=== PATIENT | female | born 1965 ===

== ENCOUNTER 2019-11-10 16:17 | Outpatient (REF) | payer BC, SELFPAY ==
[2019-11-14 16:03] LABS: SARS-CoV-2 RNA Undetected (Undetected); SARS-CoV-2 Specimen Source Nasopharynx
== END 2019-11-10 16:37 ==
LOC: NCHCN 16:17
PROVIDERS: Visit Provider Internal Medicine
DX: Z20.828 Contact with and (suspected) exposure to other viral communicable diseases (principal)
CPT/HCPCS: U0003

== ENCOUNTER 2021-05-28 16:17 | Outpatient (REF) | payer BC, SELFPAY ==
[2021-05-28 21:50] LABS: Hemoglobin A1C 5.5 % (<5.7)
[2021-05-28 22:06] LABS: ALT 41 U/L (14-59); AST 20 U/L (15-37); Alkaline Phosphatase 121 U/L (46-116); Anion Gap 9.5 mmol/L (3-11); BUN 21 mg/dL (7-18); Bilirubin, Total 0.4 mg/dL (0.2-1.0); CO2 26.5 mmol/L (21.0-32.0); Calcium 10.6 mg/dL (8.5-10.1); Calculated LDL 135 mg/dL (<100); Chloride 106 mmol/L (98-107); Cholesterol 207 mg/dL (<200); Estimated GFR 57.78 (mL/min/1.73m2); Glucose 89 mg/dL (74-106); HDL Cholesterol 55 mg/dL (40-60); Potassium 4.7 mmol/L (3.5-5.1); Sodium 142 mmol/L (136-145); Total Protein 6.9 g/dL (6.4-8.2); Triglyceride 88 mg/dL (<150)
== END 2021-05-28 16:18 | disposition home or self-care (01) ==
LOC: NCHCN 16:17
PROVIDERS: Visit Provider Nurse Practitioner Family
DX: R03.0 Elevated blood-pressure reading, without diagnosis of hypertension (principal); Z68.32 Body mass index [BMI] 32.0-32.9, adult
CPT/HCPCS: 80053; 80061; 83036